=== PATIENT | female | born 1995 | race Caucasian/White ===

== ENCOUNTER 2019-06-05 04:30 | Inpatient (IN) | payer OTHER ==
[~2019-06-05] VITALS: Ht 162.6 cm; Wt 67.6 kg
[~2019-06-05 04:30] MED LIST: FERR134T PO; PREN-19 PO
[2019-06-05 04:52] VITALS: BP 120/79; PULSE 82; RESP 16
[2019-06-05] MEDS ORDERED: LACTATED RINGER'S 1,000 ML IV PRN (05:50)
[2019-06-05] MEDS ORDERED: OXYTOCIN 30 UNITS/LR 500 ML IV SCH ×2 (06:00→21:00)
[2019-06-05] MEDS ORDERED: BUTORPHANOL 2 MG INJ IV PRN ×2 (06:00)
[2019-06-05] MEDS ORDERED: MISOPROSTOL 200 MCG TAB PR PRN (06:00)
[2019-06-05] MEDS ORDERED: OXYTOCIN 30 UNITS/LR 500 ML IV PRN (06:00)
[2019-06-05] MEDS ORDERED: LIDOCAINE 1% (MPF) 30 ML INJ INJ PRN (06:00)
[2019-06-05] MEDS ORDERED: CARBOPROST 250 MCG INJ IM PRN (06:00)
[2019-06-05] MEDS ORDERED: METHYLERGONOVINE 0.2 MG INJ IM PRN (06:00)
[2019-06-05] MEDS ORDERED: IBUPROFEN 600 MG TAB PO PRN (06:00)
[2019-06-05] MEDS: LACTATED RINGER'S 1,000 ML IV SCH ×3 (06:34→21:16)
[2019-06-05] MEDS ORDERED: FENTAnyl 2MCG/ML-ROPIV 0.2% 100 ML ONE (11:34)
[2019-06-05] MEDS ORDERED: DIPHENHYDRAMINE 50 MG INJ IV PRN (12:00)
[2019-06-05] MEDS ORDERED: ONDANSETRON 4 MG INJ IV PRN (12:00)
[2019-06-05] MEDS ORDERED: NALOXONE (0.4 MG/ML) INJ IV PRN (12:00)
[2019-06-05] MEDS: FENTAnyl 2MCG/ML-ROPIV 0.2% 100 ML BAG EPI SCH (19:26)
[2019-06-05] MEDS: OXYTOCIN 30 UNITS/LR 500 ML IV SCH (21:10)
[2019-06-06] MEDS ORDERED: AMPICILLIN 2 GM/NS (PMX) 100 ML IV ONE (01:30)
[2019-06-06] MEDS ORDERED: ACETAMINOPHEN 500 MG TAB PO PRN (01:30)
[2019-06-06] MEDS: FENTAnyl 2MCG/ML-ROPIV 0.2% 100 ML BAG EPI SCH ×3 (02:13→11:24)
[2019-06-06] MEDS: LACTATED RINGER'S 1,000 ML IV SCH ×2 (05:22→10:49)
[2019-06-06] MEDS: AMPICILLIN 1 GM/NS (PMX) 50 ML IV SCH ×3 (05:22→13:45)
[2019-06-06] MEDS: OXYTOCIN 30 UNITS/LR 500 ML IV SCH ×2 (17:29→21:22)
[2019-06-06] MEDS ORDERED: METHYLERGONOVINE 0.2 MG INJ IM PRN (18:00)
[2019-06-06] MEDS ORDERED: OXYTOCIN 30 UNITS/LR 500 ML IV PRN (18:00)
[2019-06-06] MEDS ORDERED: HYDROCODONE/APAP (5/325) TAB PO PRN (18:00)
[2019-06-06] MEDS ORDERED: MISOPROSTOL 200 MCG TAB PR PRN (18:00)
[2019-06-06] MEDS ORDERED: CARBOPROST 250 MCG INJ IM PRN (18:00)
[2019-06-06] MEDS: IBUPROFEN 600 MG TAB PO SCH (18:51)
[2019-06-06 20:15] VITALS: BP 109/74; PULSE 83; RESP 18
[2019-06-06 21:00] VITALS: BP 110/66; PULSE 78; RESP 18
[2019-06-06] MEDS: BENZOCAINE 20% 56 ML SPRAY TOP PRN (21:18)
[2019-06-06] MEDS: LANOLIN HPA 1 PKT TOP PRN (21:18)
[2019-06-06] MEDS: LACTATED RINGER'S 1,000 ML IV* SCH (21:50)
[2019-06-06 23:00] VITALS: BP 112/72; PULSE 76; RESP 18
[2019-06-07] MEDS: IBUPROFEN 600 MG TAB PO SCH ×5 (00:42→23:39)
[2019-06-07] MEDS: LACTATED RINGER'S 1,000 ML IV* SCH (01:52)
[2019-06-07] MEDS: OXYTOCIN 30 UNITS/LR 500 ML IV SCH (03:52)
[2019-06-07 04:20] VITALS: BP 100/60; PULSE 80; RESP 18
[2019-06-07 07:40] VITALS: BP 112/56; PULSE 72; RESP 17
[2019-06-07] MEDS: SENNA/DOCUSATE NA (8.6MG/50MG) TAB PO SCH ×2 (09:06→21:19)
[2019-06-07] MEDS ORDERED: MEASLES,MUMPS,RUBELLA VACCINE INJ SC* ONE (14:30)
[2019-06-07 15:44] VITALS: BP 101/58; PULSE 81; RESP 17
[2019-06-07 19:10] VITALS: BP 101/58; PULSE 80; RESP 18
[2019-06-08 03:30] VITALS: BP 110/62; PULSE 82; RESP 18
[2019-06-08] MEDS: IBUPROFEN 600 MG TAB PO SCH ×2 (05:33→12:17)
[2019-06-08 08:00] VITALS: BP 109/68; PULSE 62; RESP 16
[2019-06-08] MEDS ORDERED: DIPHTH/TET/ACEL PERTUSS (ADULT) 0.5 ML VIAL IM* ONE (09:00)
[2019-06-08] MEDS: SENNA/DOCUSATE NA (8.6MG/50MG) TAB PO SCH (09:59)
[2019-06-08] MEDS: LANOLIN HPA 1 PKT TOP PRN (09:59)
[2019-06-08] MEDS: BENZOCAINE 20% 56 ML SPRAY TOP PRN (13:27)
== END 2019-06-08 14:05 | disposition home or self-care (01) | DRG 807 ==
LOC: L-D 04:30 → OBT 04:30 → L-D 05:45 → MS1 06-06 20:09
PROVIDERS: ADMIT Specialist; ATTEND Specialist
PROC: 10E0XZZ Delivery of Products of Conception, External Approach (ICD-10-PCS; principal; 2019-06-06)
PROC: 0HQ9XZZ Repair Perineum Skin, External Approach (ICD-10-PCS; 2019-06-06)
DX: O70.0 First degree perineal laceration during delivery (principal); Z37.0 Single live birth; Z3A.39 39 weeks gestation of pregnancy
CPT/HCPCS: 62322; 81003; 85025; 85610; 85730; 86592; 86850; 86900; 86901; 87086; 87340; 99464; G0463; J0290; J0595; J2405; J2590; J3010; J7120